=== PATIENT | female | born 1960 | race Caucasian/White ===

== ENCOUNTER → 2016-07-02 | Outpatient (CLI) | payer MEDICARE, BC ==
--- NOTE | 2016-07-05 13:19 | XR ---
EXAMINATION TYPE: XR chest 2V DATE OF EXAM: 07/02/2016 3:18 PM COMPARISON: NONE INDICATION: Bronchopneumonia TECHNIQUE: Frontal and lateral views of the chest are obtained. FINDINGS: The heart size is normal. The pulmonary vasculature is normal. The lungs are clear. There is an increased AP diameter and increased kyphosis. IMPRESSION: 1. No acute pulmonary process.
== END | disposition home or self-care (01) ==
LOC: RADXRYALE 15:00
PROVIDERS: ATTEND Family Medicine
DX: J18.0 Bronchopneumonia, unspecified organism (principal)
CPT/HCPCS: 71020

== ENCOUNTER → 2016-09-28 | Outpatient (CLI) | payer MEDICARE, BC ==
--- NOTE | 2016-09-30 13:02 | XR ---
EXAMINATION TYPE: XR chest 2V DATE OF EXAM: 09/28/2016 12:08 PM COMPARISON: 07/02/2016 INDICATION: Short of breath TECHNIQUE: 2 view frontal chest FINDINGS: The heart size is normal. The pulmonary vasculature is normal. Right lower lobe infiltrate is present. Some mild atelectasis may be at the left costophrenic angle. IMPRESSION: 1. Correlate for right middle lobe pneumonia. Follow-up exams can be performed. 2. Minimal plate atelectasis left costophrenic angle may be present.
== END | disposition home or self-care (01) ==
LOC: RADXRYALE 11:47
PROVIDERS: ATTEND Family Medicine
DX: R06.02 Shortness of breath (principal); J69.0 Pneumonitis due to inhalation of food and vomit
CPT/HCPCS: 71020

== ENCOUNTER → 2016-10-06 | Outpatient (CLI) | payer MEDICARE, BC ==
--- NOTE | 2016-10-07 08:17 | XR ---
EXAMINATION TYPE: XR chest 2V DATE OF EXAM: 10/06/2016 3:04 PM COMPARISON: 09/28/2016 HISTORY: 56-year-old female shortness of breath and bronchopneumonia TECHNIQUE: Frontal and lateral views FINDINGS: Heart remains upper limits of normal in size. Mild elongation of the thoracic aorta. Strandy opacity at the left base. More patchy medial right basilar opacity. This shows slight interval improvement. N o pleural effusion. IMPRESSION: Strandy atelectasis at the left base and persistent, possibly slightly improved medial right basilar atelectasis and/or infiltrate.
== END | disposition home or self-care (01) ==
LOC: RADXRYALE 14:36
PROVIDERS: ATTEND Family Medicine
DX: J98.11 Atelectasis (principal)
CPT/HCPCS: 71020

== ENCOUNTER → 2016-11-09 | Outpatient (CLI) | payer MEDICARE, BC ==
--- NOTE | 2016-11-10 07:15 | XR ---
EXAMINATION TYPE: XR chest 2V DATE OF EXAM: 11/09/2016 COMPARISON: Chest x-ray October 06, 2016. Older x-rays back through February 14, 2013 HISTORY: Follow up for pneumonia. TECHNIQUE: Frontal and lateral views of the chest are obtained. FINDINGS: Underlying emphysematous change is redemonstrated. There is persistent right medial basilar opacity not resolved since September 28. There is no new focal air space opacity, pleural effusion, or pneumothorax seen. The cardiac silhouette size is stable and enlarged. The osseous structures are intact. IMPRESSION: Chronic emphysematous change with persistent right medial basilar opacity new from remot e studies. No new infiltrate is seen. Contrast-enhanced CT follow-up advised due to not resolving opa city as underlying mass needs to BE excluded.
== END | disposition home or self-care (01) ==
LOC: RADXRYALE 11:50
PROVIDERS: ATTEND Family Medicine
DX: J43.9 Emphysema, unspecified (principal); R91.8 Other nonspecific abnormal finding of lung field
CPT/HCPCS: 71020